=== PATIENT | female | born 2000 | race Caucasian/White ===

== ENCOUNTER 2021-02-07 12:05 | Emergency (ER) | payer SELFPAY ==
[~2021-02-07] VITALS: Ht 157.5 cm; Wt 48.1 kg
--- NOTE | 2021-02-07 12:15 | NUR ---
BREAK RN: THIS IS A 20 YEAR OLD FEMALE WHO C.O OF "I've been having COVID symptoms since yesterday." PT C/O OF MUSCLE ACHES, BROWN, COUGH
--- NOTE | 2021-02-07 12:33 | NUR ---
BREAK RN: GAVE PATIENT URINE CUP, EXPLAINED NEED FOR CLEAN CULTURE, EXPLAINED IN DETAIL HOW TO OBTAIN APPROPRIATE CULTURE, PT VERBALIZED UNDERSTANDING
[2021-02-07 12:48] VITALS: BP 111/70
--- NOTE | 2021-02-07 12:48 | NUR ---
URINE COLLECTED AND UA SENT AT THIS TIME.
[2021-02-07 13:02] LABS: HCG UR SG 1.025 (1.003-1.030); MICROSCOPIC AUTO
[2021-02-07 13:28] LABS: RAPID INFLUENZA A Negative (Negative); RAPID INFLUENZA B Negative (Negative)
--- NOTE | 2021-02-07 13:37 | NUR ---
LOTTERIES AGENT: LAB CALLED PER DR. PRADO REQUEST REGARDING COVID SWAB THAT WAS WALKED TO LAB BY PA, SPOKE WITH FRANCISCO IN LAB, COVID SWAB WAS RECEIVED IN LAB AND WILL BE PENDING. DISCUSSED WITH DR. PRADO, AWARE.
--- NOTE | 2021-02-07 14:28 | NUR ---
Patient given discharge instructions and they have confirmed that they understand the instructions.
== END 2021-02-07 14:30 | disposition home or self-care (01) ==
LOC: ED 14:24
DX: J02.8 Acute pharyngitis due to other specified organisms (principal); Z20.822 Contact with and (suspected) exposure to COVID-19; J06.9 Acute upper respiratory infection, unspecified
CPT/HCPCS: 81001; 81025; 87077; 87081; 87086; 87400; 87880; 93005; 99284; U0003; 87186